=== PATIENT | male | born 1990 ===

== ENCOUNTER 2022-08-27 13:40 | Emergency (ER) | payer OTHER ==
[~2022-08-27] VITALS: Ht 185.4 cm; Wt 86.2 kg
[2022-08-27] MEDS ORDERED: PAXLOVID 300-11 EACH PO (16:24)
[2022-08-27] MEDS ORDERED: TUSNEL LIQUID178 ML PO (16:24)
[2022-08-27] MEDS ORDERED: DOLOGEN CAPLET1 EACH PO (16:24)
[2022-08-27] MEDS ORDERED: PROAIR RESPICL90 MCG IH (16:24)
== END 2022-08-27 16:42 | disposition home or self-care (01) ==
LOC: ER 13:40
DX: U07.1 COVID-19 (principal); B34.9 Viral infection, unspecified; R53.81 Other malaise